=== PATIENT | male | born 1995 | race African-American/Black ===

== ENCOUNTER 2017-04-25 00:23 | Emergency (ER) | payer OTHER ==
[~2017-04-25] VITALS: Ht 188 cm; Wt 108.9 kg
--- NOTE | ~2017-04-25 | CR113 ---
[facility] A Service of [facility] & [facility] RADIOLOGY TEXT RESULTS PATIENT: ROD NGUYEN JR LOCATION: [facility] : [birth year] UNIT #: [id number] AGE: [address]: Juan Alberto Austin MD SEX: M ORDER DR: [id number] [facility] [address] [place], [place] [address] [id number] E MR#: [id number] Acc #: [id number] NAME: ROD GNUYEN JR : 1995 SEX: M STUDY DATE/TIME: 04/25/2017 3:30 UNIT: [facility] ROOM: STUDY DESCRIPTION: CR Finger 2 View [address] R[address] Attending Physician: Juan Alberto Austin M.D. Ordering Physician: Juan Alberto Austin M.D. Primary Care Physician: Nickie Luu M.D. MEDICAL IMAGING REPORT This report is preliminary unless electronic signature is present EXAM 3 views right fourth finger. DATE: 04/25/2017 HISTORY Dog bite at the base of the fourth digit, puncture wound, pain. Injury occurred yesterday. COMPARISON None. FINDINGS There is no evidence of fracture, dislocation, or radiopaque foreign body. IMPRESSION Normal fourth finger. Dictated by... Ankita Linda M.D. THIS IS AN ELECTRONICALLY VERIFIED REPORT Ankita Linda M.D. at 04/25/2017 9:49 PM FELIBERTO/magali TD: 04/25/2017 04:16 JOB #: [id number] MEDICAL IMAGING REPORT Page 1 of 1 COPY
[~2017-04-25 00:23] MED LIST: ALBUTEROL17 GM INH; AZITHROMYCIN250 MG PO; BACTRIM DS TABL1 TA1 PO; IBUPROFEN200 M1 PO; KEFLEX500 MG PO; PREDNISONE PO; PRILOSEC PO; TYLENOL #3 PO
== END 2017-04-25 04:25 | disposition home or self-care (01) ==
LOC: CED 00:23
DX: S61.254A Open bite of right ring finger without damage to nail, initial encounter (principal); J45.909 Unspecified asthma, uncomplicated; F17.200 Nicotine dependence, unspecified, uncomplicated; Z79.899 Other long term (current) drug therapy; W54.0XXA Bitten by dog, initial encounter; Y92.009 Unspecified place in unspecified non-institutional (private) residence as the place of occurrence of the external cause
CPT/HCPCS: 73140; 99283